=== PATIENT | female | born 1960 | race Caucasian/White ===

== ENCOUNTER → 2017-11-26 | Outpatient (CLI) | payer BC ==
--- NOTE | 2017-11-26 07:47 | US ---
EXAMINATION TYPE: US venous doppler duplex LE BI DATE OF EXAM: 11/26/2017 7:23 AM COMPARISON: NONE CLINICAL HISTORY: R60.0 Localized Edema. Pt states bilateral leg pain and swelling x 3-6 months/ No k nown prior DVT, not on blood thinners SIDE PERFORMED: Bilateral TECHNIQUE: The lower extremity deep venous system is examined utilizing real time linear array sonog mikey with graded compression, doppler sonography and color-flow sonography. VESSELS IMAGED: External Iliac Vein (EIV) Common Femoral Vein Deep Femoral Vein Greater Saphenous Vein * Femoral Vein Popliteal Vein Small Saphenous Vein * Proximal Calf Veins (* superficial vessels) Grayscale, color doppler, spectral doppler imaging performed of the deep veins of the lower extremiti es. There is normal flow, compressibility, vascular waveforms Right Leg: Negative for DVT Left Leg: Negative for DVT IMPRESSION: No evidence of DVT bilaterally.
== END | disposition home or self-care (01) ==
LOC: RADUSWWP 06:59
PROVIDERS: ATTEND Family Medicine
DX: R60.0 Localized edema (principal)
CPT/HCPCS: 93970

== ENCOUNTER → 2018-01-19 | Outpatient (CLI) | payer BC ==
--- NOTE | 2018-01-20 10:06 | MM ---
Reason for exam: screening (asymptomatic). Last mammogram was performed 2 years and 7 months ago. History: Patient is postmenopausal and is nulliparous. Physical Findings: A clinical breast exam by your physician is recommended on an annual basis and results should be correlated with mammographic findings. MG Screening Mammo w CAD Bilateral CC and MLO view(s) were taken. Prior study comparison: July 03, 2015, bilateral MG screening mammo w CAD. May 27, 2011, bilateral digital screening mammo w/CAD. There are scattered fibroglandular densities. There is chronic nodularity bilaterally. Asymmetric breast tissue in the left breast inferior position, stable. There is no discrete abnormality. ASSESSMENT: Benign, BI-RAD 2 RECOMMENDATION: Routine screening mammogram of both breasts in 1 year.
== END | disposition home or self-care (01) ==
LOC: RADMAMWWP 12:26
PROVIDERS: ATTEND Family Medicine
DX: Z12.31 Encounter for screening mammogram for malignant neoplasm of breast (principal)
CPT/HCPCS: 77067

== ENCOUNTER 2018-07-06 12:06 | Day surgery (SDC) | payer BC ==
[2018-07-04 08:36] VITALS: BMI 40.7
[~2018-07-06 12:06] MED LIST: LACTATED RINGERS 1,000 ML IV SCH; LIDOCAINE 1% 20 ML VIAL (10MG/ML) FOR IV START INTRADERMA PRN
[2018-07-06 12:34] VITALS: RESP 16; TEMP 97.8
[2018-07-06] MEDS ORDERED: LIDOCAINE 1% INJ 10MG/ML (20 ML MDV) ONE (13:40)
[2018-07-06] MEDS ORDERED: PROPOFOL 10 MG/ML 20 ML VIAL IV ONE (13:40)
--- NOTE | 2018-07-06 14:07 | P.PCN ---
Date of Procedure: 07/06/18 Procedure(s) Performed: BRIEF HISTORY: Patient is a 57-year-old pleasant white female, scheduled for an elective colonoscopy as a part of screening for colorectal neoplasia. PROCEDURE PERFORMED: Colonoscopy. PREOPERATIVE DIAGNOSIS: Screening for colon cancer. IV sedation per Anesthesia. PROCEDURE: After informed consent was obtained, the patient, was brought into the endoscopy unit. IV sedation was administered by Anesthesia under continuous monitoring. Digital rectal examination was normal. Initially the Olympus CF- 160 flexible video colonoscope was then inserted in the rectum, gradually advanced into the cecum without any difficulty. Careful examination was performed as the scope was gradually being withdrawn. Ileocecal valve and the appendiceal orifice were visualized and appeared normal. Prep was fair.. Mucosa of the cecum, ascending colon, transverse colon, descending colon, sigmoid colon, and rectum appeared normal. Retroflexion was performed in the rectum and no lesions were seen. The patient tolerated the procedure well. IMPRESSION: Normal-appearing colon from rectum to cecum with no evidence of colorectal neoplasia. RECOMMENDATIONS: Findings of this examination were discussed with the patient less her family. She was advised to have a repeat screening colonoscopy in 10 years.
[2018-07-06 14:27] VITALS: BP 99/55; PULSE 67
== END 2018-07-06 14:38 | disposition home or self-care (01) ==
LOC: ORWHC2ENDO 12:06
PROVIDERS: ATTEND Internal Medicine Gastroenterology
DX: Z12.11 Encounter for screening for malignant neoplasm of colon (principal); K64.9 Unspecified hemorrhoids; K21.9 Gastro-esophageal reflux disease without esophagitis; I10 Essential (primary) hypertension; Z79.899 Other long term (current) drug therapy; Z88.1 Allergy status to other antibiotic agents
CPT/HCPCS: J2001; J2704; G0121; 45378

== ENCOUNTER → 2019-10-04 | Outpatient (CLI) | payer BC ==
[2019-10-04 16:55] LABS: Basophils % (A) 0 %; Eosinophils # (A) 0.3 k/uL (0-0.7); Eosinophils % (A) 4 %; HCT 43.9 % (34.0-46.0); HGB 14.3 gm/dL (11.4-16.0); Lymphocytes # (A) 1.9 k/uL (1.0-4.8); Lymphocytes % (A) 25 %; MCH 28.4 pg (25.0-35.0); MCHC 32.6 g/dL (31.0-37.0); MCV 86.9 fL (80.0-100.0); Mean Platelet Volume 7.6; Monocytes # (A) 0.5 k/uL (0-1.0); Monocytes % (A) 6 %; Neutrophils # (A) 4.8 k/uL (1.3-7.7); Neutrophils % (A) 63 %; Platelet Count 241 k/uL (150-450); RBC 5.05 m/uL (3.80-5.40); WBC 7.6 k/uL (3.8-10.6)
== END | disposition home or self-care (01) ==
LOC: LABPAT 16:01
PROVIDERS: ATTEND Obstetrics & Gynecology
DX: Z01.810 Encounter for preprocedural cardiovascular examination (principal); Z01.812 Encounter for preprocedural laboratory examination; N95.0 Postmenopausal bleeding
CPT/HCPCS: 85025; 93005

== ENCOUNTER 2019-10-09 09:29 | Day surgery (SDC) | payer BC ==
[2019-10-05 14:59] VITALS: BMI 45.4
[~2019-10-09 09:29] MED LIST changes: +DEXAMETHASONE SOD PHOSPHATE 10 MG/ML 1 ML VIAL IV ONE; +HYDROmorphone 0.5 MG/0.5 ML SYRINGE IVP PRN; +ONDANSETRON 4 MG/2 ML VIAL IVP ONE; +Pre Op ABX Message 1 EACH MISC MISCELLANE ONE; +fentaNYL (PF) 50 MCG/ML 2 ML AMP IV PRN
[2019-10-09] MEDS ORDERED: KETOROLAC 30 MG/ML 1 ML VIAL IVP PRN (11:06)
[2019-10-09] MEDS ORDERED: Acetaminophen-Codeine 300-30mg TAB PO PRN ×2 (11:06)
[2019-10-09] MEDS ORDERED: SIMETHICONE 80 MG CHEWABLE PO PRN (11:06)
[2019-10-09] MEDS ORDERED: diphenhydrAMINE 50 MG/ML 1 ML VIAL IVP PRN (11:06)
[2019-10-09] MEDS ORDERED: IBUPROFEN 600 MG TAB PO PRN (11:06)
[2019-10-09] MEDS ORDERED: ONDANSETRON 4 MG/2 ML VIAL IVP PRN (11:06)
[2019-10-09] MEDS ORDERED: METOCLOPRAMIDE 5 MG/ML 2 ML VIAL IVP PRN (11:06)
[2019-10-09] MEDS ORDERED: LIDOCAINE 1% INJ 10MG/ML (20 ML MDV) ONE (11:13)
[2019-10-09] MEDS ORDERED: MIDAZOLAM 2 MG/2 ML VIAL ONE (11:13)
[2019-10-09] MEDS ORDERED: SUCCINYLCHOLINE CHLORIDE 100 MG/5 ML SYR IV ONE (11:13)
[2019-10-09] MEDS ORDERED: fentaNYL (PF) 50 MCG/ML 2 ML AMP ONE (11:13)
[2019-10-09] MEDS ORDERED: KETOROLAC 30 MG/ML 1 ML VIAL ONE (11:13)
[2019-10-09] MEDS ORDERED: PROPOFOL 10 MG/ML 20 ML VIAL IV ONE (11:13)
[2019-10-09] MEDS ORDERED: LACTATED RINGERS 1,000 ML IV SCH (11:15)
--- NOTE | 2019-10-09 11:48 | P.OP ---
Date of Procedure: 10/09/19 Preoperative Diagnosis: #1. Postmenopausal bleeding Postoperative Diagnosis: Same plus #2. Probable endocervical polyp Procedure(s) Performed: #1. Diagnostic hysteroscopy #2. Dilation and curettage Anesthesia: SILVIO Surgeon: Anthony Israel Estimated Blood Loss (ml): 5 IV fluids (ml): 200 Urine output (ml): 200 Pathology: other (Endometrial and endocervical curettings, single specimen) Condition: stable Disposition: PACU Operative Findings: Gravid pelvic examination demonstrated a roughly 4 week midplane normal uterus though the exam is somewhat limited secondary to patient abdominal habitus. The uterus sounded to approximately 7 cm. The hysteroscope demonstrated what appeared to be a small, roughly 1 cm polyp originating at 4 or 5:00 at the junction of the cervix and endometrial cavity. This did appear to be removed completely with the polyp forceps. We never had tremendous distention in the endometrial cavity though it did appear otherwise atrophic and without any apparent pathology. Curettage did demonstrate the typical gritty texture and several examples of what appeared to be polypoid tissue were removed both with curettage and the polyp forceps. Description of Procedure: The patient was prepped and draped in usual fashion after general endotracheal anesthesia was administered by the anesthesiologist. A weighted speculum was placed in the bladder draining approximately 200 mL of clear robbin urine. The anterior lip of the cervix was grasped with single-tooth tenaculum and uterus was sounded to 7 cm as noted above. Serial dilation was carried out to admit the diagnostic hysteroscope which was placed with the findings as noted above. The bilateral uterine cornua were not clearly seen as there was never a tremendous amount of distention of the endometrial cavity. However, upon drawing back the scope, a polypoid structure was clearly seen at the junction of the endometrial cavity and the cervix which appeared to be approximately 1 cm in size and originating approximate 4 or 5:00 on the clock face. After adequate hysteroscopy been performed, the scope was set aside and the sharp curet placed in the endometrial cavity. Thorough and circumferential curettage was carried out from the fundus to the cervix with minimal tissue returned onto a Telfa in the vagina. A polyp forceps was introduced and the polyp grasped and removed without difficulty. One or 2 more passes with the sharp curet produced a small amount of further polypoid-looking tissue. All instrumentation was then removed and the cervix released with no ongoing bleeding from the tenaculum site or the cervix itself. Estimated blood loss for the case was 5 mL or less. There were no complications. All sponge, instrument, and needle counts were correct. The patient tolerated the procedure well and proceeded to the recovery room in stable condition.
[2019-10-09 11:55] VITALS: TEMP 97.7
[2019-10-09 12:36] VITALS: RESP 18
[2019-10-09 12:50] VITALS: BP 114/59; PULSE 74
== END 2019-10-09 13:12 | disposition home or self-care (01) ==
LOC: OR 09:29
PROVIDERS: ATTEND Obstetrics & Gynecology
DX: N84.0 Polyp of corpus uteri (principal); N84.1 Polyp of cervix uteri; H40.9 Unspecified glaucoma; E07.9 Disorder of thyroid, unspecified; H91.90 Unspecified hearing loss, unspecified ear; K21.9 Gastro-esophageal reflux disease without esophagitis; Z87.42 Personal history of other diseases of the female genital tract; Z90.49 Acquired absence of other specified parts of digestive tract; Z98.890 Other specified postprocedural states; Z87.74 Personal history of (corrected) congenital malformations of heart and circulatory system; Z79.890 Hormone replacement therapy; Z79.899 Other long term (current) drug therapy; Z88.1 Allergy status to other antibiotic agents; Z82.5 Family history of asthma and other chronic lower respiratory diseases; Z82.49 Family history of ischemic heart disease and other diseases of the circulatory system; Z83.3 Family history of diabetes mellitus; Z80.52 Family history of malignant neoplasm of bladder; Z80.42 Family history of malignant neoplasm of prostate
CPT/HCPCS: 88305; 58558; J2250; J1100; J2405; J2001; J3010; J1885; J0330; J2704

== ENCOUNTER → 2020-10-02 | Outpatient (CLI) | payer BC ==
--- NOTE | 2020-10-02 08:35 | MR ---
EXAMINATION TYPE: MR knee RT wo con DATE OF EXAM: 10/02/2020 COMPARISON: None HISTORY: Right knee internal derangement, M 23.91 TECHNIQUE: Multiplanar, multisequence imaging of the right knee is performed without IV contrast. FINDINGS: MEDIAL MENISCUS: Anterior and posterior horns are intact without tear. LATERAL MENISCUS: There is marked irregularity of the anterior horn of the lateral meniscus, abnormal intrinsic signal is present. Abnormal increased signal also present within the posterior horn Within the soft tissues lateral to the joint extending along the lateral aspect of the lateral femoral cond yle there is a T1 isointense, T2 bright focus measuring approximately 5.1 cm in cephalad to caudal di mension by 5 cm in AP dimension by 2.2 cm with some questionable internal septations, lobular contour extending from the joint space level CRUCIATE LIGAMENTS: Fibers of the anterior cruciate ligament are not well-defined. Posterior cruciate ligament shows some intact fibers but some abnormal increased intrinsic signal COLLATERAL LIGAMENTS: Possible tendinosis involving the popliteus tendon, there is increased intrinsi c signal, no evident discrete tear EXTENSOR MECHANISM: Visualized quadriceps and patellar tendons are intact. EFFUSION: Suprapatellar joint effusion is small POPLITEAL CYST: No popliteal/harp cyst. 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 IMPRESSION: Tear of the lateral meniscus with probable large meniscal cyst as described. Findings suggest tear of the anterior cruciate ligament. Osteoarthritis. Additional findings above.
== END | disposition home or self-care (01) ==
LOC: RADMRIMAIN 06:43
PROVIDERS: ATTEND Family Medicine
DX: S83.281A Other tear of lateral meniscus, current injury, right knee, initial encounter (principal); M17.11 Unilateral primary osteoarthritis, right knee

== ENCOUNTER → 2024-03-08 | Outpatient (CLI) | payer BC ==
--- NOTE | 2024-03-09 07:24 | BD ---
EXAMINATION TYPE: Axial Bone Density DATE OF EXAM: 03/08/2024 CLINICAL HISTORY: 63 years old Female. ICD-10 CODE: M81.0 AGE RELATED OSTEO Height: 5 ft 6 in Weight: 279 FRAX RISK QUESTIONS: Alcohol (3 or more units per day): no Family History (Parent hip fracture): no Glucocorticoids (More than 3mos): no (Ex: prednisone, prednisolone, methylprednisolone, dexamethasone, and hydrocortisone). History of Fracture in Adulthood: no Secondary Osteoporosis: 1. Type 1 Diabetes: no 2. Hyperthyroidism: no 3. Menopause before 45: no 4. Malnutrition: no 5. Chronic liver disease: no Rheumatoid Arthritis: no Current Tobacco Use: no RISK FACTORS HISTORY OF: Surgery to Spine/Hip(right/left)/Wrist (right/left): no MEDICATIONS: Thyroid Medications: yes Which medication: levothyroxine How Lon years Osteoporosis Medications: no EXAM MEASUREMENTS: Bone mineral densitometry was performed using the [employer] System. Bone mineral density as measured about the Lumbar spine is: ----- L1-L4(G/cm2): 1.488 T Score Values are as follows: ----- L1: 2.4 ----- L2: 2.7 ----- L3: 2.9 ----- L4: 2.0 ----- L1-L4: 2.6 Z Score Values are as follows: ----- L1: 2.7 ----- L2: 3.0 ----- L3: 3.2 ----- L4: 2.3 ----- L1-L4: 2.8 baseline Bone mineral density about the R hip (g/cm2): 1.020 Bone mineral density about the L hip (g/cm2): 1.087 T Score values are as follows: -----R Neck: -0.1 -----L Neck: 0.4 -----R Total: 0.1 -----L Total: 0.7 Z Score values are as follows: -----R Neck: 0.5 -----L Neck: 1.0 -----R Total: 0.4 -----L Total: 1.0 baseline FRAX%s: The graph provided illustrates a 5.7 % chance for a major osteoporotic fx and a 0.2 % chance for the hips probability for fx in 10 years time. IMPRESSION: Normal (Values between +1 and -1 indicate normal bone mass). Consider repeating this study in 5 year s or sooner if there is some new clinical indication. NOTE: T-SCORE=SD OF THE YOUNG ADULT MEAN.
--- NOTE | 2024-03-09 19:09 | MM ---
Reason for Exam: Screening (asymptomatic). Last mammogram was performed 6 year(s) and 2 month(s) ago. Patient History: Menarche at age 11. Patient has no children. Postmenopausal. Risk Values: Yudelka 5 year model risk: 1.9%. NCI Lifetime model risk: 8.1%. Prior Study Comparison: 05/27/2011 Bilateral Screening Mammogram, [facility]. 07/03/2015 Bilateral Screening Mammogram, [facility]. 01/19/2018 Bilateral Screening Mammogram, [facility]. Tissue Density: There are scattered areas of fibroglandular density. Findings: Analyzed By CAD. Unchanged bilateral areas of asymmetric density. There is no suspicious group of microcalcifications or new suspicious mass in either breast. Overall Assessment: Benign, BI-RAD 2 Management: Screening Mammogram of both breasts in 1 year. . Patient should continue monthly self-breast exams. A clinical breast exam by your physician is recommended on an annual basis. This exam should not preclude additional follow-up of suspicious palpable abnormalities. Note on Yudelka scores and lifetime risk: 1. A Yudelka score greater than 3% is considered moderate risk. If this is the case, consider specialist referral to assess eligibility for a risk reducing agent. 2. If overall lifetime risk for the development of breast cancer is 20% or higher, the patient may qualify for future screening with alternating mammogram and breast MRI. Electronically signed and approved by: Janie Sam M.D. Radiologist
== END | disposition home or self-care (01) ==
LOC: RADMAMWWP 08:48
PROVIDERS: ATTEND Family Medicine
DX: Z12.31 Encounter for screening mammogram for malignant neoplasm of breast (principal); M81.0 Age-related osteoporosis without current pathological fracture; Z78.0 Asymptomatic menopausal state
CPT/HCPCS: 77067; 77080